=== PATIENT | male | born 1985 | race Caucasian/White ===

== ENCOUNTER 2016-12-06 16:19 | Emergency (ER) | payer BC ==
[~2016-12-06] VITALS: Ht 172.7 cm; Wt 70.3 kg
--- NOTE | ~2016-12-06 | CT71 ---
[facility] A Service of [facility] & [facility] RADIOLOGY TEXT RESULTS PATIENT: JERRY CASPER LOCATION: [facility] : 87 UNIT #: [id number] AGE: [address]: Anup Mosqueda MD SEX: M ORDER DR: [id number] [facility] [address] [place], [place] [address] [id number] MR#: [id number] Acc #: [id number] NAME: JERRY CASPER : 1985 SEX: M STUDY DATE/TIME: 12/06/2016 17:31 UNIT: [facility] ROOM: STUDY DESCRIPTION: CT Head Wo Contrast Attending Physician: Anup Mosqueda M.D. Ordering Physician: Anup Mosqueda M.D. Primary Care Physician: Aydin Mcclellan M.D. MEDICAL IMAGING REPORT This report is preliminary unless electronic signature is present EXAM CT brain without contrast HISTORY Headache today. Right side weakness and slurred speech. TECHNIQUE This CT exam was performed with one or more of the following radiation dose reduction techniques: automatic exposure control, adjustment of mA and/or kV according to patient size, and iterative reconstruction. FINDINGS Axial noncontrast images were obtained from the skull base to the vertex. Ventricular size and configuration are normal. There is no evidence of acute infarct or hemorrhage. There are no extra-axial fluid collections. No mass lesion or mass effect is seen. There are no skull fractures. IMPRESSION Normal noncontrast head CT. Dictated by... Bernardo Lee M.D. THIS IS AN ELECTRONICALLY VERIFIED REPORT Bernardo Lee M.D. at 12/07/2016 10:39 PM Hilda TD: 12/07/2016 15:33 JOB #: [id number] MEDICAL IMAGING REPORT Page 1 of 1 COPY
[~2016-12-06 16:19] MED LIST: DICLOFENAC PO; SKELAXIN PO
== END 2016-12-06 18:57 | disposition home or self-care (01) ==
LOC: CED 16:19
DX: G43.409 Hemiplegic migraine, not intractable, without status migrainosus (principal); F17.200 Nicotine dependence, unspecified, uncomplicated
CPT/HCPCS: 70450; 96374; 96375; 99284; J0595; J0780; J1200; J1885; J2930